=== PATIENT | female | born 1990 | race Caucasian/White ===

== ENCOUNTER 2016-05-10 18:44 | Emergency (ER) | payer BC, OTHER ==
[~2016-05-10] VITALS: Ht 157.5 cm; Wt 48.8 kg
[~2016-05-10 18:44] MED LIST: CEPH250C PO; CIPR500T4 PO; CORTIS10A AU; SPIR25TA OR
[2016-05-10 18:47] VITALS: BP 115/79; PULSE 63; RESP 16; TEMP 98.2; O2SAT 100
[2016-05-10] MEDS ORDERED: SPIR25TA PO (19:13)
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
[2016-05-10] MEDS ORDERED: ROBA750T PO (20:35)
[2016-05-10] MEDS ORDERED: DICL50TA3 PO (20:35)
== END 2016-05-10 20:55 | disposition home or self-care (01) ==
LOC: PHEFT 18:44
DX: S16.1XXA Strain of muscle, fascia and tendon at neck level, initial encounter (principal); S39.012A Strain of muscle, fascia and tendon of lower back, initial encounter; S20.211A Contusion of right front wall of thorax, initial encounter; V49.40XA Driver injured in collision with unspecified motor vehicles in traffic accident, initial encounter
CPT/HCPCS: 71101; 72050; 84703; 99283

== ENCOUNTER 2017-02-17 18:21 | Emergency (ER) | payer BC ==
[~2017-02-17] VITALS: Ht 157.5 cm; Wt 48.5 kg
[~2017-02-17 18:21] MED LIST changes: -CEPH250C PO; -CIPR500T4 PO; -CORTIS10A AU; +DICL50TA3 PO; +ROBA750T PO; -SPIR25TA OR; +SPIR25TA PO
[2017-02-17 18:23] VITALS: BP 130/66; PULSE 79; RESP 16; TEMP 98.5; O2SAT 100
--- NOTE | 2017-02-17 18:29 | PD ---
HPI Chief Complaint: Transcription Problem/Complaint Time Seen by Provider: 18:29 Travel History International Travel<30 days: No Contact w/Intl Traveler<30days: No Traveled to known affect area: No History of Present Illness HPI 27-year-old female came to the emergency room with history of vaginal lump, pain for past more than 24 hours. Today about 1 hour ago she suddenly felt a relief of pressure down there with some warmth fluid gushing out. She looked down there there was blood. This concerned her and she came to the emergency room. No history of vaginal intercourse recently. Her last period was 2 weeks ago. She has never had this before. No history of fever or chills. No history of dysuria. PFSH Past Medical History Narrative Medical list of her past medical, surgical, social and family history is reviewed from the nursing note. Hx Anticoagulant Therapy: No ?: Not : 0 Para: 0 Social History Alcohol Use: Yes (Occ.) Tobacco Use: No Substance Use: No Allergies-Medications (Allergen,Severity, Reaction): Coded Allergies: Sulfa (Sulfonamide Antibiotics) (Unverified Allergy, Mild, HIVES, 02/17/17 ) doxycycline (Unverified Allergy, Mild, HIVES, 02/17/17) minocycline (Unverified Allergy, Mild, HIVES, 02/17/17) tigecycline (Unverified Allergy, Mild, HIVES, 02/17/17) Comments List of her allergies reviewed from the nursing note. Reported Meds & Prescriptions Reported Meds & Active Scripts Active Ciprofloxacin (Ciprofloxacin HCl) 500 Mg Tab 500 Mg PO BID 7 Days Flagyl (Metronidazole) 250 Mg Tab 250 Mg PO TID 7 Days Robaxin (Methocarbamol) 750 Mg Tab 750 Mg PO QID PRN 2 tabs QID for 2 days, then 1 tab QID thereafter Diclofenac Sodium DR (Diclofenac Sodium) 50 Mg Tabdr 50 Mg PO BID Reported Spironolactone 25 Mg Tab 25 Mg PO DAILY Narrative Medication List of her home medications reviewed from the nursing note. Review of Systems Except as stated in HPI: all other systems reviewed are Neg Genitourinary: Positive: Vaginal Bleeding Physical Exam Narrative GENERAL: Awake, alert, anxious SKIN: Focused skin assessment warm/dry. HEAD: Atraumatic. Normocephalic. EYES: Pupils equal and round. No scleral icterus. No injection or drainage. ENT: No nasal bleeding or discharge. Mucous membranes pink and moist. NECK: Trachea midline. No JVD. CARDIOVASCULAR: Regular rate and rhythm. No murmur appreciated. RESPIRATORY: No accessory muscle use. Clear to auscultation. Breath sounds equal bilaterally. GASTROINTESTINAL: Abdomen soft, non-tender, nondistended. Hepatic and splenic margins not palpable. : Externally there was some dried blood around the perineum. Left labia minora was swollen. Speculum exam showed a dilated varicose vein on the left vaginal wall. There was a tender lump submucosally in that area that was mobile and about 1 cm x 1 cm. There was white mucus discharge noticed from the cervix. Swabs were collected. MUSCULOSKELETAL: No obvious deformities. No clubbing. No cyanosis. No edema. NEUROLOGICAL: Awake and alert. No obvious cranial nerve deficits. Motor grossly within normal limits. Normal speech. PSYCHIATRIC: Appropriate mood and affect; insight and judgment normal. Data Data Last Documented VS Orders Orders Silver Nitrate Applicators (Silver Nitra (02/17/17 19:15) Gc And Chlamydia Pcr (02/17/17 19:16) Wet Prep Profile (02/17/17 19:16) Wound Culture And Gram Stain (02/17/17 19:16) Ibuprofen (Motrin) (02/17/17 19:30) Ciprofloxacin (Cipro) (02/17/17 19:30) Metronidazole (Flagyl) (02/17/17 19:45) Ed Discharge Order (02/17/17 19:33) Labs Laboratory Tests Test 02/17/17 19:20 Clue Cells (Wet Prep) NONE SEEN Vaginal Trichomonas (Wet Prep) NONE SEEN Vaginal Yeast (Wet Prep) NONE SEEN Chlamydia trachomatis DNA (PCR) NOT DETECTED Neisseria gonorrhoeae DNA (PCR) NOT DETECTED MDM Medical Decision Making Medical Screen Exam Complete: Yes Emergency Medical Condition: Yes Medical Record Reviewed: Yes Differential Diagnosis Bartholin's cyst, Bartholin's abscess, vaginal varicose vein Narrative Course 7:30 PM please refer to my procedure note regarding the cauterization of the varicose vein. Discussed the case with Dr. Galloway who is on-call for [employer]. She was perfectly fine with the management that was done so far. She would see her in her office tomorrow. I will let the patient about this. She was given ibuprofen for the pain. Swabs were sent for wet prep and GC and chlamydia. I' m comfortable discharging her home with a prescription for psych screen and Flagyl. Procedures Procedure Narrative Vaginal silver nitrate cauterization: The varicose vein was noticed to be bleeding and it was cauterized with silver nitrate stick. Patient was very nervous and jumpy but overall tolerated the procedure well. Diagnosis Primary Impression: Bartholin's gland abscess Additional Impression: vaginal varicose vein Referrals: Hannah Galloway MD Additional Instructions: Please follow-up with the [employer] specialist Dr. Galloway who is office address has been given to you. Please call her at 9:00 at her office. The number is . They are phone lines opens at 9 AM. Wear tampons or pads for the bleeding if it continues. Take the medication as per the prescription direction. Med/Other Pt SpecificInfo: Prescription(s) given Scripts Ciprofloxacin (Ciprofloxacin) 500 Mg Tab 500 MG PO BID for Infection for 7 Days, #14 TAB 0 Refills Prov: Tran Sanchez MD 02/17/17 Metronidazole (Flagyl) 250 Mg Tab 250 MG PO TID for Infection for 7 Days, TAB 0 Refills Prov: Tran Sanchez MD 02/17/17 Disposition: 01 DISCHARGE HOME Condition: Stable Tran Sanchez MD Feb 17, 2017 18:29
[2017-02-17] MEDS ORDERED: SILVER NITR/POTASSIUM NITRATE APPLICATORS TOPICAL ONE (19:15)
[2017-02-17] MEDS ORDERED: CIPROFLOXACIN 500 MG TAB PO ONE (19:30)
[2017-02-17] MEDS ORDERED: IBUPROFEN 600 MG TAB PO ONE (19:30)
[2017-02-17] MEDS ORDERED: CIPR500T2 PO (19:32)
[2017-02-17] MEDS ORDERED: METR250 PO (19:32)
[2017-02-17 19:42] VITALS: BP 136/88; PULSE 80; RESP 16; O2SAT 100
[2017-02-17] MEDS ORDERED: metroNIDAZOLE 500 MG TAB PO ONE (19:45)
[2017-02-18 01:33] LABS: CHLAMYDIA PCR NOT DETECTED (NOT DETECT); NEISSERIA PCR NOT DETECTED (NOT DETECT)
== END 2017-02-17 20:37 | disposition home or self-care (01) ==
LOC: PHED 18:21
DX: N75.1 Abscess of Bartholin's gland (principal); I86.8 Varicose veins of other specified sites; B96.20 Unspecified Escherichia coli [E. coli] as the cause of diseases classified elsewhere
CPT/HCPCS: 12001; 86403; 87070; 87077; 87186; 87205; 87210; 87491; 87591